=== PATIENT | female | born 1970 | race Hispanic/Latino ===

== ENCOUNTER 2019-12-09 05:30 | Inpatient (IN) | payer OTHER ==
[~2019-12-09] VITALS: Ht 157.5 cm; Wt 74.8 kg
[~2019-12-09 05:30] MED LIST: GLUCOPHAGE500 MG PO; LIPITOR40 MG PO; LISINOPRIL20 MG PO; TRANEXAMIC ACI650 MG PO
--- NOTE | 2019-12-09 11:44 | NUR ---
12/09/19 1144 Eliza Garsia 1130- PT ARRIVES TO PACU AROUSABLE TO VOICE. FALLS RIGHT BACK TO SLEEP WHEN NOT BEING TALKED TO. RESP EVEN AND UNLABORED. OXYGEN SAT HIGH 90'S TO 100% ON 6L VIA MASK. PT'S HOB ELEVATED SLIGHTLY. GAINES IS DRAINING CLEAR YELLOW URINE. 1131- PT'S BLOOD SUGAR IS 338. ANAI ANDERSON CRNA AND DR. RICHARDS NOTIFIED. NEW ORDERS ARE BEING PLACED FOR INSULIN. 1138- PT IS AROUSABLE AND REPORTS NO PAIN OR NAUSEA.
--- NOTE | 2019-12-09 12:10 | NUR ---
RECEIVED PT FROM MAI SMITH ALL QUESTIONS ANSWERED. PT APPEARS TO BE SLEEPING BUT WILL AWAKEN WHEN SPOKEN TO. PT DOES SPEAK WELSH AND [place]. PT DENIES PAIN. FAMILY MEMBER AT BEDSIDE 1230: PHONE CALL TO DR RICHARDS REGARDING IV FLUIDS. NEW ORDER RECEIVED LR AT 75MLS/HR RUNNING. LAB HER TO OBTAIN HGBA1C FROM PT. PT CONTIOUES TO DENIE PAIN. 1300: PT CONTIOUES TO SLEEP, AWAKENS WHEN SPOKEN TOO, ICE CHIPS AT THE BEDSIDE.
--- NOTE | 2019-12-09 12:44 | NUR ---
THIS RN TO ROOM TO ASSIST WITH PT CARE. CBG RETAKEN PER PTS RN PREFERENCE. VALUE REPORTED TO PTS RN. IV FLUIDS STARTED PER MD ORDER. PT DENIES PAIN AND NAUSEA AT THIS TIME. LAB TO BEDSIDE TO DRAW ORDERED LABS. NO ADDITIONAL REQUESTS OR COMPLAINTS. BED RAILS UP. CALL LIGHT WITHIN REACH.
--- NOTE | 2019-12-09 13:32 | NUR ---
PT GIVEN ICE CHIPS HEAD OF BE ELEVATED ALSO AT THIS TIME. PT CONTIOUES TO C/O PRESSURE AND THE FEELING THE NEED TO VOID. EXPLAINED THAT SHE HAS A CATHETER THAT IS DRAINING URINE. AND AT THIS TIME IT APPEARS TO HAVE GOOD URINE OUTPUT.
--- NOTE | 2019-12-09 13:53 | NUR ---
REPORT GIVEN TO ALL QUESTIONS ANSWERED.
--- NOTE | 2019-12-09 14:07 | NUR ---
RECIEVED REPORT FROM Marta MURRIETA RN. PATIENT LYING IN BED. VITAL SIGNS OBTAINED. ASSESSMENT COMPLETED. STATES PAIN IS TOLERABLE AT THIS TIME. CALL LIGHT IN REACH. FAMILY MEMBER AT BEDSIDE.
--- NOTE | 2019-12-09 15:29 | NUR ---
STATES PAIN IS "GOOD" AT THIS TIME. VITALS SIGNS OBTAINED. DENIES OTHER NEEDS.
--- NOTE | 2019-12-09 17:58 | NUR ---
Admitted from surgery this afternoon for open hysterectomy. Patient remains with poor oral intake. Pain controlled with IV Dilaudid. Glucose elevated and requiring insulin coverage. IV fluids infusing. Elder catheter remains in place with adequate urine output.
--- NOTE | 2019-12-09 19:20 | NUR ---
SHIFT REPORT RECEIVED FROM MIYA VALENTINE. PT RESTING IN BED. ABD PAIN 06/24, PT DENIES NEED FOR FURTHER INTERVENTION. IV FLUIDS INFUSING PER ORDER. NO OTHER NEEDS AT THIS TIME. CALL LIGHT IN REACH.
--- NOTE | 2019-12-09 21:11 | NUR ---
PT CALLED REQUESTING PAIN MEDS. ADMINISTERED 1MG IV DILAUDID FOR 10/10 ABD PAIN. PT DENIES NEED FOR ICE AT THIS TIME. SHE DENIES FURTHER NEEDS. CALL LIGHT IS CLOSE AND IV IS INFUSING FINE.
--- NOTE | 2019-12-09 22:15 | NUR ---
VS TAKEN AND ENTERED, PRIMARY RN SYDNI IS IN ROOM WITH PT AT THIS TIME.
--- NOTE | 2019-12-09 22:24 | NUR ---
ASSESSMENT, VS AND I&O COMPLETED. 3 LAP SITES WNL, COVERED. MIDLINE INCISION COVERED, SCANT SHADOWING. ABD MILDLY DISTENDED, SOFT, BOWEL TONES ACTIVE. SCHEDULED MEDS PROVIDED. GCS 15, A&O X4. CMS INTACT. LUNGS CLEAR. NO EXTREMITIY EDEMA NOTED. PRN INSULIN PROVIDED PER ORDER. IV WNL, CDI, FLUSHED WELL. PUDDING AND ICE WATER PROVIDED. NO OTHER NEEDS. CALL LIGHT IN REACH.
--- NOTE | 2019-12-09 23:46 | NUR ---
PT RESTING IN BED, EYES CLOSED. RR EVEN, UNLABORED. IV FLUIDS INFUSING PER ORDER. SCDs ON. EDER WNGregor. CALL LIGHT IN REACH.
--- NOTE | 2019-12-10 00:44 | NUR ---
PT STATES SHE HAS 8/10 ABD PAIN, PRN PAIN MED AND ICE PACK PROVIDED. NO OTHER NEEDS AT THIS TIME. CALL LIGHT IN REACH.
--- NOTE | 2019-12-10 02:02 | NUR ---
VS AND I&O COMPLETED. PT EDUCATED CONCERNING USE OF I.S., PT USING AT THIS TIME. IV WNL, IV FLUIDS INFUSING PER ORDER. GAINES CARE PROVIDED. URINE IS NEVA, CLEAR, NO ODOR. INCISIONS WNL. ASSESSMENT COMPLETED. LUNGS CLEAR. ABD MILDLY DISTENDED, TENDER, SOFT. BOWEL TONES ACTIVE. PAIN 6/10, PT DENIES NEED FOR INTERVENTION. NO OTHER NEEDS AT THIS TIME. CALL LIGHT IN REACH.
--- NOTE | 2019-12-10 05:59 | NUR ---
IN ROOM TO ADMINISTER PAIN MEDS PER PT REQUEST. ADMINISTERED PERCOCET SINCE SHE TOLERATED THE LAST DOSE. AFTER TAKING VS PULSE RR AND BP WERE ALL ELEVATED AND PT WAS MOANING AND GRIMICING IN 10 PAIN. ADMINSITERED IV DILAUDID TO HOLD HER OVER UNTIL THE PERCOCET CAN TAKE AFFECT. PT DENIES FURTHER NEEDS AT THIS TIME. CALL LIGHT IS CLOSE.
--- NOTE | 2019-12-10 07:00 | NUR ---
Patient lying in bed. Recieved report from Marta Perez RN. Patient states pain is improved at this time. Denies needs. Call light in reach, bed rails up X2. Elder in place and IV fluids infusing.
--- NOTE | 2019-12-10 09:20 | NUR ---
SPOKE WITH PATIENT IN ROOM. PATIENT LIVES WITH FAMILY. SHE IS EMPLOYED AND DRIVES. USES [facility] IN [place] FOR PCP NEEDS. DENIES USING ANY DME. DENIES CONCERN FOR AFFORDING MEDS, FOOD AND UTILITIES. SHE PLANS TO DISCHARGE HOME AND FEELS SAFE. NO BARRIERS KNOWN AT THIS TIME TO DISCHARGE HOME.
--- NOTE | 2019-12-10 09:24 | NUR ---
Patient states pain is 7/10. PRN medications given. Assist to ambulate to bathroom. Gait unsteady. Sits on toilet for a few minutes. States she is unable to void at this time. Returns to bed. Denies other needs. SCD's replaced. IV remains infusing. Call light in reach, bed rails up X2.
[2019-12-10] MEDS ORDERED: IRON325 M1 PO (09:49)
--- NOTE | 2019-12-10 09:49 | NUR ---
MED REC COMPLETE
--- NOTE | 2019-12-10 10:22 | NUR ---
Patient lying in bed with eyes closed. States pain is tolerable at this time. Denies needs at this time. Call light in reach, bed rails up X2.
--- NOTE | 2019-12-10 11:29 | NUR ---
PT ALERT, ORIENTED AND WATCHING TV. PT IS PLEASANT, RATED PAIN AT 8. PT STATED THAT SHE IS COMFORTABLE AND THANKED ME FOR COMING BY. GAVE BLESSISNG, WILL FOLLOW NEEDED
--- NOTE | 2019-12-10 12:38 | NUR ---
Patient attempts to void X3 since catheter removal this AM. Unable to void. States she feels bladder is full. Attempts to bladder scan unsuccessful due to incision site. Abdomen firm, able to palpate bladder easily. Dr. Wen notified at 1216, phone orders read back Dr. Wen/Abraham Wen RN, to restart casillas catheter. Casillas inserted with sterile technique, tolerated well. 300 mL of immediate return of galen urine. Balloon filled with 10 mL of sterile saline.
--- NOTE | 2019-12-10 16:09 | NUR ---
Patient states pain is tolerable. Up ambulating in hallway with daughter. Denies other needs.
--- NOTE | 2019-12-10 17:59 | NUR ---
Pain controlled with PRN medications. Ambulates in hallway multiple times today. Casillas DC'd, unable to void so casillas catheter restarted. IV fluids continue infusing. Glucose elevated and requireing insulin coverage with meals.
--- NOTE | 2019-12-10 19:21 | NUR ---
SHIFT REPORT RECEIVED FROM MIYA VALENTINE. PT RESTING IN BED, EYES CLOSED. RR EVEN, UNLABORED. IV FLUIDS INFUSING PER ORDER. CALL LIGHT IN REACH.
--- NOTE | 2019-12-10 21:10 | NUR ---
COPY MANAGER ROUNDING NOTE. PT RESTING IN BED AWAKE. DENIES QUESTIONS OR CONCERNS AT THIS TIME. WHITE BOARD UPDATED. CALL LIGHT IN REACH.
--- NOTE | 2019-12-10 21:29 | NUR ---
ASSESSMENT, VS AND I&O COMPLETED. SCHEDULED MEDS PROVIDED. PRN INSULIN PROVIDED. GCS 15, A&O X4. LUNGS CLEAR. BOWEL TONES ACTIVE. ABD SOFT, MILDLY DISTENDED, TENDER. INCISIONS WNL, COVERED WITH STERI STRIPS. CMS INTACT X4 EXTREMITIES, NO EDEMA NOTED. ABD PAIN 8/10, PRN PAIN MED PROVIDED. NO OTHER NEEDS AT THIS TIME. CALL LIGHT IN REACH.
--- NOTE | 2019-12-10 21:30 | NUR ---
TOOK PT VITALS, I&Os DONE, RN IN FOR PM ASSESMENT AND MEDS, FRESH ICE WATER GIVEN, ICK PACK PROVIDED, CALL LIGHT IN REACH, NO FURTHER NEEDS AT THIS TIME
--- NOTE | 2019-12-11 | NUR ---
pt resting in bed, eyes closed. rr even, unlabored. casillas wnl. iv fluids infusing per order. call light in reach.
--- NOTE | 2019-12-11 02:09 | NUR ---
Call LIGHT ANSWERED. PATIENT ASKING FOR PAIN MEDICATION. POLICE DETENTION ATTENDANT JANA NOTIFIED DUE TO PRIMARY RN SYDNI WAS ON BREAK.
--- NOTE | 2019-12-11 04:20 | NUR ---
IV PUMP ALARMING, NEW BAG IV FLUIDS PROVIDED. ASSESSMENT COMPLETED. GCS 15, A&O X4. ABD PAIN 2/10, ICE PACK PROVIDED. INCISIONS WNL, COVERED WITH STERI STRIPS, NO NEW DRAINAGE. ABD SOFT, TENDER, BOWEL TONES ACTIVE, MILDLY DISTENDED. CMS INTACT X 4. NO OTHER NEEDS. CALL LIGHT IN REACH.
--- NOTE | 2019-12-11 06:24 | NUR ---
PT SLEPT WELL LAST NIGHT. PAIN MANAGED WITH PRN PAIN MEDS. PT TOLERATED IV FLUIDS WELL. IV WNL. UOS. VSS. GAINES CARE PROVIDED, WNL. INCISIONS HAVE DRIED, RED BLOOD COVERED WITH STERI STRIPS, NO NEW DRAINAGE. CBG 225, MANAGED WITH SCHEDULED AND PRN MEDS. PT TOLERATED DIET AND GAINES WELL.
--- NOTE | 2019-12-11 07:26 | NUR ---
pt states she has 8/10 abd pain. prn pain med provided. no other needs at this time. call light in reach.
--- NOTE | 2019-12-11 07:34 | NUR ---
REPORT RECIEVED FROM EDITOR INDEX SERGE TROY.
--- NOTE | 2019-12-11 08:24 | NUR ---
MONRNING ASSESSMENT DONE. PATIENT UP TO CHAIR, 10/10 RIGHT SIDED ABD PAIN AFTER PERCOCET. 1MG OF IV DILAUDID GIVEN. PATIENT IS CURRENTLY UNABLE TO EAT BREAKFAST, DUE TO PAIN. INSULIN COVERAGE HELD. ABDOMINAL INCISIONS INTACT WITH STERI STRIPS AND SCANT OLD DRAINAGE.
--- NOTE | 2019-12-11 10:14 | NUR ---
DR. RICHARDS IN TO SEE PATIENT.
--- NOTE | 2019-12-11 11:08 | NUR ---
PATIENT RESTING IN BED, ENDORSES THAT HER PAIN IS "OKAY," PLAN TO GIVE 2 PERCOCET AT 1130.
--- NOTE | 2019-12-11 13:09 | NUR ---
PATIENT GIVEN 3 UNITS OF NOVOLOG AFTER EATING HER LUNCH, PRE BLOOD GLUCOSE WAS 207. PATIENT RATES ABD PAIN 6/10 AND IMPROVED FROM 8/10 PRE MEDICATION RATING. GAINES CATHETER D/C'D AND PATIENT TOLERATED WELL.
--- NOTE | 2019-12-11 15:59 | NUR ---
PATIENT DONE WITH SHOWER, UP TO AMBULATE IN HALLWAYS, ENDORSES FEELING BETTER. PATIENT HAS VOIDED X2 SINCE GAINES WAS DISCONTINUED.
--- NOTE | 2019-12-11 16:57 | NUR ---
PATIENT BLADDER SCAN OF ZERO. PATIENT GIVEN MEDICATIONS FOR 8/10 ABD PAIN. BLOOD GLUCOSE IS 150 BUT PATIENT HAS POOR APPETITE, WILL GIVE 1 UNIT OF INSULIN IF PATIENT EATS SOMETHING FOR DINNER. IVF RESUMED.
--- NOTE | 2019-12-11 18:40 | NUR ---
PATIENT VOIDED 100ML, FEELS LIKE IT DIFFICULTY TO START GOING.
--- NOTE | 2019-12-11 19:30 | NUR ---
PATIENT SITTING IN BED WATCHING TV, NO NEEDS AT THIS TIME. GETTING REPORT FROM JORJE SOLIS RN. CALL LIGHT IS IN REACH.
--- NOTE | 2019-12-11 21:47 | NUR ---
PATIENT IN BED TALKING ON THE PHONE , PATIENT SAYS HER ABD PAIN IS 6/10, BUT SHE DOES NOT WANT ANYTHING FOR PAIN AT THIS TIME. PATIENT GOING TO TRY AND SLEEP WITHOUT PAIN MEDS FOR NOW. CALL LIGHT IN REACH AND NEW ICE WATER GIVEN.
--- NOTE | 2019-12-12 00:35 | NUR ---
PATIENT AWOKE AND WENT TO THE BATHROOM TO VOID AND BACK TO BED 1PSBA. ABD PAIN NOW 10/10 AND TO PERCOCET GIVEN PO. CALL LIGHT AND WATER IN REACH AND PATIENT DID FINISH HER CREAM CHEESE AND BAGLE.
--- NOTE | 2019-12-12 02:40 | NUR ---
PATIENT'S PAIN IS DOWN TO 4/10 AND SHE SAYS SHE NEEDS NOTHING ELSE AT THIS TIME. CALL LIGHT IS IN REACH.
--- NOTE | 2019-12-12 05:05 | NUR ---
PATIENT CALLED AND WAS HAVING 7/10 ABD PAIN AND GIVEN 800MG PO MOTRIN. ASKED PATIENT TO CALL ME BACK IF NOT FEELING BETTER IN AN HOUR. VS STABLE AND CALL LIGHT IN REACH.
--- NOTE | 2019-12-12 05:31 | NUR ---
PATIENT GOT 2 PERCOCET EARLY ON IN THE MORNING FOR 10/10 ABD PAIN AFTER GETTING UP AND GOING TO THE BATHROOM. PATIENT DIDN'T SLEEP MUCH AND JUST GOT 800MG OF MOTRIN FOR 7/10 ABD PAIN AFTER IT HAD GONE DOWN TO 4/10 WHICH WAS COMFORTABLE. SHE WANTED TO TRY THE MOTRIN OVER THE DILAUDID IV, AND THE PERCOCET IS NOT DO AGAIN YET. VOIDING SUFFICIENT. IV INFUSING WNL. PATIENT TRYING TO GET SOME MORE SLEEP, ALL SURGICAL SITES STIL HAVE CRUSTY RED STERI-STRIPS IN PLACE AND HAVE NO CHANGED THIS SHIFT.
--- NOTE | 2019-12-12 08:00 | NUR ---
Entered pt room for morning med pass and assessment. Pt was lying in bed, side rails up, table and call light beside her. Pt ambulated independently to chair, me standing by. Pt sitting up, reclined in chair for assessment., VSS. Pt having breakfast sitting up in chair. New bag of fluids started, LR @ 75ml/hr as ordered. Pt blanket and pillows adjusted to comfort. Pt able to take mornings meds without difficulty. Pt reports 6/10 pain, PRN pain meds given as ordered. Pt demonstrated proper use of I.S. to 1000 x10 before breakfast. Pt able to demonstrate cough with splinting abdomen. Pt left sitting up in chair, having breakfast, table over her lap, call light within reach.
[2019-12-12] MEDS ORDERED: IBUPROFEN800 MG PO (09:31)
[2019-12-12] MEDS ORDERED: PERCOCET 7.5-31 EACH PO (09:32)
--- NOTE | 2019-12-12 09:45 | NUR ---
Entered pt room to round. Pt sitting up in chair with side table and call light within reach. Pt reports improvement of 3/10 pain and no nausea. Pt reports no further needs at this time.
--- NOTE | 2019-12-12 10:25 | NUR ---
Entered pt room for discharge instructions, IV DC, and final DC review and questions. Pt up in room. IV fluids stopped, per DC orders. Vitals taken, all VSS. Pt reports 3/10 pain, a bit worse with movement. IV removed, catheter intact no excessive bleeding noted. Pt refused assistance getting dressed. Pt verbalized understanding of DC instructions. Pt expressed concern about the note from her doctor about not being allowed to work ([place] note). I left to ask Kristin VALENTINE (charge) about it, Kristin VALENTINE called the MD, MD said to expect the note to be faxed to her employer tomorrow. Pt was notified, still concerned, I encouraged her to call his office in the morning to ensure the fax is sent to her employer. Pt agrees to do so. Pt has no further questions or concerns about condition or DC. Pt left sitting up in chair, dressed and ready for her daughter to pick her up, call light within reach.
--- NOTE | 2019-12-13 14:50 | PATH ---
[facility] [address] [place], [place] [address] Signed SPECIMEN(S): A UTERUS, CERVIX AND TUBES SPECIMEN SOURCE: A. UTERUS, CERVIX AND TUBES CLINICAL HISTORY: Abnormal uterine bleeding. FINAL PATHOLOGIC DIAGNOSIS: Uterus, cervix, and bilateral fallopian tubes, hysterectomy and bilateral salpingectomy: - Cervix: Dilated os with protruding pedunculated uterine leiomyoma, endocervical mucosa with squamous metaplasia, see Comment. - Endometrium: Proliferative endometrium. - Myometrium: Adenomyosis, pedunculated leiomyoma (8.5 cm in greatest dimension) with focal extramedullary hematopoiesis and organizing thrombus/hematoma, small intramural leiomyoma (0.7 cm). - Serosa: No histopathologic abnormality. - Fallopian tubes: No histopathologic abnormality. - Negative for malignancy. COMMENT: Gross examination revealed the pedunculated leiomyoma extending from the uterine fundus to the cervical canal, where it protrudes through the dilated cervical os. Multiple additional sections of the cervix were submitted. Endocervical glandular mucosa with squamous metaplasia is present, but stratified squamous mucosa is not identified. No dysplasia or malignancy is seen. As part of [facility] Quality Improvement Program, this case was reviewed by Dr. Barahona, another member of our pathology staff. NAL:[id number] MICROSCOPIC EXAMINATION: Histologic sections of all submitted blocks are examined by light microscopy. These findings, together with the gross examination, support the pathologic diagnosis. GROSS DESCRIPTION: The specimen, labeled "SL, uterus, cervix and fallopian tubes," is received in formalin and consists of uterus and cervix that is previously longitudinally opened anteriorly. The uterus measure 7.5 x PATIENT NAME: ABBEY DOW PATHOLOGY DATE OF : 72 REPORT #: [id number] PHYSICIAN: LIYAH PATHOLOGY PCP: SKYE RICHARDS DO REPORT IS CONFIDENTIAL AND NOT TO BE RELEASED WITHOUT AUTHORIZATION [facility] [address] [place], [place] [address] Signed 5.7 x 9.5 cm. The ectocervix is pink-correia and measure 10.5 x 0.5 cm. The uterus weight 382 g. The endometrial cavity measure 3.5 x 5.2 cm. It shows pink-correia, smooth endometrium. Also present within the endometrial cavity is pendular polyp that measure 8.5 x 4.5 x 3.5 cm. The surface of the polyp is dark red and focally congested. The polyp extends into cervical neck and protrudes through the dilated cervical os. The middle part of the polyp is adherent to the posterior-inferior endometrial wall. Sectioning through the polyp reveal white, whorled surface with signs of hemorrhage. Sectioning through myometrium reveal one well-defined, firm, white intramural nodule that measure 0.7 cm dimension. The remaining of the myometrium shows trabeculated surface. The myometrium measure 3.2 cm in thickness. The endometrium measure up to 0.1 cm in thickness. from the uterus, within the container are two undesignated fallopian tubes. Both of them shows fimbria and violaceous and smooth serosa. The first fallopian tube measure 5.7 x 1.1 cm. The second fallopian tube measure 5.5 x 1.1 cm. The second tube is inked. Sectioning through both fallopian tubes is unremarkable. Cassette summary: (A1) Cervix, ict sales representative sections (A2) Endomyometrium, ict sales representative sections (A3) Intramural nodule, ict sales representative sections (A4-A6) Pendular polyp, ict sales representative sections (A7) Fallopian tubes, ict sales representative sections JS (under the direct supervision of a pathologist) The Gross Description was prepared using a voice recognition system. The report was reviewed for accuracy; however, sound-alike word errors, addition and/or deletions may occur. If there is any question about this report, please contact Client Services. PERFORMING LABORATORY: The technical component was performed by [facility] [address] ([employer]: Eloina Gavin MD; CLIA# [id number]). Professional interpretation was performed by [facility], [address] [address] (CLIA# [id number]). Diagnostician: Michelle Bhatti MD Pathologist Electronically Signed 12/13/2019 PATIENT NAME: ABBEY DOW PATHOLOGY DATE OF : 72 REPORT #: [id number] PHYSICIAN: LIYAH PATHOLOGY PCP: SKYE RICHARDS DO REPORT IS CONFIDENTIAL AND NOT TO BE RELEASED WITHOUT AUTHORIZATION [facility] [address] [place], [place] [address] Signed Copies: ~ PATIENT NAME: ABBEY DOW PATHOLOGY DATE OF : 72 REPORT #: [id number] PHYSICIAN: LIYAH PATHOLOGY PCP: SKYE RICHARDS DO REPORT IS CONFIDENTIAL AND NOT TO BE RELEASED WITHOUT AUTHORIZATION
--- NOTE | 2019-12-14 15:24 | OR ---
[facility] [address] [place], [place] [address] Signed DATE OF OPERATION: 12/09/2019 SURGEON: Skye Wen DO PREOPERATIVE DIAGNOSES: 1. Abnormal uterine bleeding. 2. Fibroid uterus. 3. Type 2 diabetes. 4. Andvg-rz-pmysbpx blood-loss anemia. POSTOPERATIVE DIAGNOSES: 1. Abnormal uterine bleeding. 2. Fibroid uterus. 3. Type 2 diabetes. 4. Zngcj-tb-fmaemfh blood-loss anemia. 5. Pelvic adhesive disease. PROCEDURES PERFORMED: 1. Total abdominal hysterectomy. 2. Laparoscopic lysis of extensive adhesions. 3. Laparoscopic bilateral salpingectomy. 4. Cystoscopy. [employer]: Alberto Dobbs M.D. ANESTHESIA: 1. General. 2. TAP block performed following end of the procedure. ESTIMATED BLOOD LOSS: 200 mL. SPECIMENS: Uterus, cervix, fibroid, and bilateral fallopian tubes. FINDINGS: Normal external genitalia. Large fibroid prolapsing through the cervical os. On laparoscopy, extensive omental adhesions. Bladder adhesions to the lower uterine segment. Normal tubes and ovaries. Large fibroid uterus. On cystoscopy, normal Electronically Signed By: SKYE WEN DO 12/14/19 1524 PATIENT NAME: ABBEY DOW OPERATIVE REPORT DATE OF : 72 REPORT #: [id number] PHYSICIAN: SKYE WEN DO PCP: SKYE WEN DO REPORT IS CONFIDENTIAL AND NOT TO BE RELEASED WITHOUT AUTHORIZATION [facility] [address] [place], [place] [address] Signed bladder and bilateral ureteral jets. COMPLICATIONS: None. INDICATIONS: Ms. Darrin Oglesby is a very pleasant 49-year-old female, who presented with a history of heavy abnormal bleeding requiring multiple blood transfusions. She had a large uterine fibroid, underwent incomplete hysteroscopic resection by another provider. She continued to have heavy vaginal bleeding and decision was made to proceed with definitive treatment with hysterectomy. Risks, benefits, and alternatives were discussed in detail with the patient. The patient understands and wished to proceed with the procedure. DESCRIPTION OF PROCEDURE: The patient was taken to the operating room. A time-out was performed to confirm correct patient, correct procedure. General anesthetic was established. The patient was prepped and draped in the dorsal lithotomy position with her feet in Yellofin stirrups. ICPs were on and running. Ancef 2 g preoperatively were given per SCIP protocol and heparin was given due to her preemie score. Elder catheter was inserted and a weighted speculum was placed in vagina. The cervix was noted to be dilated with a large uterine fibroid prolapsing through the os. A VCare uterine manipulator was very carefully inserted into the uterine cavity to the fundus and the cup secured, although positioning was somewhat suboptimal. Surgeon's gloves were changed and attention was turned to the abdomen. A 0.25% Marcaine with epinephrine was infiltrated just below the umbilicus and a curvilinear 3-4 cm incision was made just below the umbilicus. The fascia was grasped, elevated, and entered sharply using Metzenbaum scissors. Stay sutures of 0-Vicryl were applied to the superior and inferior edges of the fascial incision and the peritoneum was entered bluntly. No adhesions were noted and a Parish trocar was placed without difficulty. Pneumoperitoneum was established. Survey of the abdomen and pelvis demonstrates complex omental adhesions to the anterior abdominal wall and encasing the pelvic organs. Assist ports were placed in the left lower and right lower quadrants of the abdomen under direct visualization without complication. LigaSure device was used to carefully take down omental adhesions at the edge of the anterior abdominal wall. Once the omental adhesions were lysed bilateral tubes and ovaries were identified and found to be normal. The uterus was quite enlarged due to fibroids. The bladder was densely scarred to the lower uterine segment and unable to distinguish the plane between the bladder and the lower segment. The posterior cul-de-sac was very difficult to access due to the large fibroid uterus. The fallopian tubes were grasped at the fimbriated end, elevated and dissected along the mesosalpinx to the cornu and delivered through the assist port. The utero-ovarian ligament on the left was fulgurated, divided, and found to be hemostatic. The left round ligament was Electronically Signed By: SKYE WEN DO 12/14/19 1524 PATIENT NAME: ABBEY DOW OPERATIVE REPORT DATE OF : 72 REPORT #: [id number] PHYSICIAN: SKYE WEN DO PCP: SKYE WEN DO REPORT IS CONFIDENTIAL AND NOT TO BE RELEASED WITHOUT AUTHORIZATION [address] [address] Signed fulgurated, divided, and the leaves of the broad ligament were divided down to near the scar tissue on the lower uterine segment. The process was repeated on the right without difficulty. Anteriorly, dense bladder adhesions were noted. The bladder was then backfilled with sterile milk in an effort to delineate the plane between the bladder and the lower uterine segment without success. Attempt was made to access the cul-de-sac and uterosacral ligaments, however, due to large fibroid uterus with quite broad diameter at the lowest segment, we were unable to access the posterior. It was felt that this procedure could not be completed laparoscopically at this point and decision was made to convert to open. Trocars were removed and the trocar sites were repaired. A midline incision was made starting at prior abdominoplasty scar around the umbilicus and approximately 2-3 cm above the umbilicus. Fascia was sharply divided and rectus muscle was bluntly divided. The peritoneum was grasped with hemostats, elevated, and entered sharply. Peritoneal incision was extended using Metzenbaum scissors. The bowel was packed using moist lap sponges. The cornua were grasped with heavy clamps and attention was turned to the lower segment. The serosa of the lower uterine segment was carefully scored with a scalpel and the scar between the lower segment and the bladder was then easily mobilized well below the cervix. At this point, the uterine vessels were able to be visualized, and they were doubly clamped, cut, and suture ligated using 0-Vicryl. This was repeated on the right side without difficulty. Two more clamps were placed, incorporating the cardinal ligament and uterosacral ligament clamped, cut, and suture ligated. At this point, the dissection was down to the cervix and heavy clamps were brought across the apex of the vagina just below the cervix and the uterus and cervix were amputated. The entire cervix was noted to be intact with minimal of vaginal tissue noted. The specimen was handed off for evaluation. The cuff was then closed using [id number] of 0-Vicryl with careful attention to incorporate the uterosacral ligaments bilaterally. The pelvis was irrigated and a small amount of paracervical oozing was noted. This was made hemostatic with [id number] 0-Vicryl and judicious use of Bovie electrocautery. The pedicles were examined, found to be hemostatic. Tisseel was applied across the pedicles and lower uterine segment after hemostasis was ensured. The peritoneum was then reapproximated using 2-0 Vicryl in a running nonlocked manner. Rectus was examined, found to be hemostatic, this was reapproximated using interrupted loose sutures of 0 Vicryl. Fascia was reapproximated using 0-PDS in a running nonlocked manner. Subcu was evaluated and made hemostatic with Bovie electrocautery. Subcu was then reapproximated using 3-0 Vicryl in a running nonlocked manner. Skin was reapproximated using 4-0 Monocryl in a subcuticular stitch with excellent hemostasis cosmesis. Cystoscopy was then performed. The Elder catheter was removed and a 70-degree cystoscope was placed in the urethral meatus and advanced under direct visualization to the bladder. Normal bladder dome and cavity were appreciated. Bilateral ureteral jets were noted. The bladder was drained, the Elder catheter was reinserted, and the patient was taken to PACU in good and stable condition. Sponge and instrument count was correct x2 at the end of the procedure. Dr. Dobbs Electronically Signed By: SKYE WEN DO 12/14/19 1524 PATIENT NAME: ABBEY DOW OPERATIVE REPORT DATE OF : 72 REPORT #: [id number] PHYSICIAN: SKYE WEN DO PCP: SKYE WEN DO REPORT IS CONFIDENTIAL AND NOT TO BE RELEASED WITHOUT AUTHORIZATION [facility] [address] [place] [id number] Signed was present participated in all portions of the procedure. Skye Wen DO JDW/MODL /[id number] Copies: ~ Electronically Signed By: SKYE WEN DO 12/14/19 1524 PATIENT NAME: ABBEY DOW OPERATIVE REPORT DATE OF : 72 REPORT #: [id number] PHYSICIAN: SKYE WEN DO PCP: SKYE WEN DO REPORT IS CONFIDENTIAL AND NOT TO BE RELEASED WITHOUT AUTHORIZATION
== END 2019-12-12 11:15 | disposition home or self-care (01) | DRG 742 ==
LOC: DS 05:30 → OPS 05:30 → MS 11:15 → OPS 11:43 → MS 11:44
PROVIDERS: ADMIT Obstetrics & Gynecology; ATTEND Obstetrics & Gynecology
PROC: 0UT90ZZ Resection of Uterus, Open Approach (ICD-10-PCS; principal; 2019-12-09 06:45)
PROC: 0UT74ZZ Resection of Bilateral Fallopian Tubes, Percutaneous Endoscopic Approach (ICD-10-PCS; 2019-12-09 06:45)
PROC: 0DNU4ZZ Release Omentum, Percutaneous Endoscopic Approach (ICD-10-PCS; 2019-12-09 06:45)
PROC: 3E0T3BZ Introduction of Anesthetic Agent into Peripheral Nerves and Plexi, Percutaneous Approach (ICD-10-PCS; 2019-12-09 06:45)
DX: D25.1 Intramural leiomyoma of uterus (principal); D62 Acute posthemorrhagic anemia; D25.0 Submucous leiomyoma of uterus; G89.18 Other acute postprocedural pain; E11.9 Type 2 diabetes mellitus without complications; I10 Essential (primary) hypertension; N93.8 Other specified abnormal uterine and vaginal bleeding; K66.0 Peritoneal adhesions (postprocedural) (postinfection); Z53.31 Laparoscopic surgical procedure converted to open procedure; Z79.899 Other long term (current) drug therapy; Z79.84 Long term (current) use of oral hypoglycemic drugs
CPT/HCPCS: 00840; 36415; 51702; 64488; 76942; 83036; 85027; J0131; J0330; J0690; J1170; J1644; J1650; J1815; J1885; J2405; J2704; J3010; J3475; J7121